=== PATIENT | female | born 1975 | race Hispanic/Latino ===

== ENCOUNTER 2019-03-20 21:30 | Emergency (ER) | payer SELFPAY ==
[~2019-03-20] VITALS: Ht 154.9 cm; Wt 55.8 kg
[2019-03-20 22:23] LABS: BILIRUBIN,URINE SMALL (NEGATIVE); CLARITY,URINE SL CLOUDY (CLEAR); COLOR,URINE YELLOW (YELLOW); KETONES,URINE TRACE (NEGATIVE); LEUKOCYTE ESTERASE ,URINE MODERATE (NEGATIVE); NITRITE,URINE NEGATIVE (NEGATIVE); PROTEIN,URINE DIPSTICK TRACE (NEGATIVE); URINE UROBILINOGEN 1 mg/dL (0.2 - 1)
[2019-03-20 22:49] LABS: BACTERIA,URINE MANY /HPF; EPITHELIAL CELLS,URINE FEW /LPF; MUCUS,URINE FEW (RARE); WBC,URINE (MAN) >50 /HPF (0-5)
[2019-03-20] MEDS ORDERED: ACETAMINOPHEN 325 MG TAB PO ONE (23:45)
[2019-03-21] MEDS ORDERED: CEFTRIAXONE SOD 1 GM VIAL ONE (01:15)
[2019-03-21] MEDS ORDERED: CEFTRIAXONE SOD 1 GM VIAL IM ONE (01:15)
[2019-03-21 02:29] VITALS: BP 100/74
== END 2019-03-21 02:20 | disposition home or self-care (01) ==
LOC: ER 21:30
DX: R10.2 Pelvic and perineal pain (principal); N73.0 Acute parametritis and pelvic cellulitis
CPT/HCPCS: 81001; 99282; J0696